=== PATIENT | male | born 1965 | race Caucasian/White ===

== ENCOUNTER 2016-11-26 08:18 | Day surgery (SDC) | payer OTHER ==
[2016-11-19 12:13] VITALS: BMI 62.4
[2016-11-26] MEDS ORDERED: PROPOFOL 20 ML ONE ×2 (08:25)
[2016-11-26 08:41] VITALS: TEMP 97.7
[2016-11-26 10:26] VITALS: BP 129/87; PULSE 65
--- NOTE | 2016-11-27 16:20 | PATH ---
Surgical Pathology Report Patient Name: CARMEN ROSEN [facility]. Rec. #: [id number] /Age/Gender: 1965 (Age: 50) / M Account: [id number] Location: [facility]-ENDOSCOPY Taken: 11/26/2016 Received: 11/26/2016 Reported: 11/27/2016 Physicians: Adrian French M.D. Specimen(s) Received A: BX DUODENUM B: BX ANTRUM Clinical History Rule out celiac, anemia, normal colon Final Diagnosis A. DUODENUM, BIOPSY: DUODENAL MUCOSA WITH NO PATHOLOGIC FINDINGS. Note: Features suggestive of celiac disease are not identified in this biopsy. B. ANTRUM, BIOPSY: MILDE CHRONIC GASTRITIS. IMMUNOSTAIN IS NEGATIVE FOR H. PYLORI ORGANISMS. Electronically Signed Ana Parker M.D. Gross Description A. Received in formalin, labeled "duodenum" are 2 salvador, irregular portions of soft tissue averaging 0.3 cm. in greatest dimension. The specimens are submitted in toto in one cassette. B. Received in formalin, labeled "antrum" is a salvador, irregular portion of soft tissue measuring 0.3 cm. in greatest dimension. The specimen is submitted in toto in one cassette. /11/26/2016 saudi11/26/2016
== END 2016-11-26 10:30 | disposition home or self-care (01) ==
LOC: FASU-ENDO 08:18
PROVIDERS: ATTEND Internal Medicine Gastroenterology
PROC: 0DB98ZX Excision of Duodenum, Via Natural or Artificial Opening Endoscopic, Diagnostic (ICD-10-PCS; principal; 2016-11-26 09:00)
PROC: 0DB68ZX Excision of Stomach, Via Natural or Artificial Opening Endoscopic, Diagnostic (ICD-10-PCS; 2016-11-26 09:00)
DX: D50.9 Iron deficiency anemia, unspecified (principal); K29.50 Unspecified chronic gastritis without bleeding
CPT/HCPCS: 88305-TC; 88342-TC

== ENCOUNTER 2020-09-10 07:39 | Day surgery (SDC) | payer OTHER ==
[2020-08-30 12:39] VITALS: BMI 46.2
[2020-09-10] MEDS ORDERED: LIDOCAINE HCL/PF 2% SDV 5ML VIAL ONE (07:54)
[2020-09-10] MEDS ORDERED: PROPOFOL 20 ML ONE ×6 (07:54→08:33)
[2020-09-10 08:05] VITALS: TEMP 98.5
[2020-09-10 09:28] VITALS: BP 148/76; PULSE 74
== END 2020-09-10 09:41 | disposition home or self-care (01) ==
LOC: FASU-ENDO 07:39
PROVIDERS: ATTEND Internal Medicine Gastroenterology
PROC: 0DB68ZX Excision of Stomach, Via Natural or Artificial Opening Endoscopic, Diagnostic (ICD-10-PCS; 2020-09-10)
PROC: 0DB98ZX Excision of Duodenum, Via Natural or Artificial Opening Endoscopic, Diagnostic (ICD-10-PCS; principal; 2020-09-10 08:43)
DX: K29.50 Unspecified chronic gastritis without bleeding (principal); K29.80 Duodenitis without bleeding; R12 Heartburn; Z98.84 Bariatric surgery status
CPT/HCPCS: 88305-TC; 88342-TC